=== PATIENT | female | born 2000 | race Hispanic/Latino ===

== ENCOUNTER 2024-02-07 21:35 | Emergency (ER) | payer OTHER ==
[~2024-02-07] VITALS: Ht 167.6 cm; Wt 95.3 kg
[2024-02-07 22:10] VITALS: PULSE 89; RESP 18; TEMP 99
[2024-02-07 23:51] VITALS: BP 128/77; PULSE 79; RESP 20; TEMP 97.9; O2SAT 100
== END 2024-02-07 23:30 | disposition home or self-care (01) ==
LOC: ER 21:40
DX: Z03.89 Encounter for observation for other suspected diseases and conditions ruled out (principal)
CPT/HCPCS: 99283